=== PATIENT | female | born 1980 | race Caucasian/White ===

== ENCOUNTER 2017-06-04 17:14 | Emergency (ER) | payer MEDICAID ==
[~2017-06-04] VITALS: Ht 172.7 cm; Wt 63.7 kg
[2017-06-04 17:53] LABS: HEMATOCRIT 52.7 % (34.6-47.8); HEMOGLOBIN 17.3 g/dL (11.7-16.4); WHITE BLOOD COUNT 8.7 x10^3/uL (3.4-10)
[2017-06-04] MEDS ORDERED: ONDANSETRON 2MG/ML, 2ML ONE (17:54)
[2017-06-04] MEDS ORDERED: MAALOX/HYOSCYAMINE/LIDOCAINE 45 ML BTL ONE (17:54)
[2017-06-04] MEDS ORDERED: FAMOTIDINE 20 MG/2 ML ONE (17:54)
[2017-06-04] MEDS ORDERED: MAALOX/HYOSCYAMINE/LIDOCAINE 45 ML BTL PO ONE (18:00)
[2017-06-04] MEDS ORDERED: SODIUM CHLORIDE 0.9% 1,000ML IVBOLUS ONE (18:00)
[2017-06-04] MEDS ORDERED: ONDANSETRON 2MG/ML, 2ML IVPush ONE (18:00)
[2017-06-04] MEDS ORDERED: SODIUM CHLORIDE FLUSH 10ML SYR IVF ONE (18:00)
[2017-06-04] MEDS ORDERED: FAMOTIDINE 20 MG/2 ML IVP ONE (18:00)
[2017-06-04 18:06] LABS: ASPARTATE AMINO TRANSFERASE 14 U/L (15-37); BLOOD UREA NITROGEN 10 mg/dL (7-18)
[2017-06-04] MEDS ORDERED: SODIUM CHLORIDE 0.9%, 500ML IVBOLUS ONE (19:00)
[2017-06-04] MEDS ORDERED: ALBUTEROL SULFATE 2.5 MG/3 ML NPPB ONE (19:00)
[2017-06-04] MEDS ORDERED: DEXAMETHASONE 4 MG/ML, 5ML ONE (19:00)
[2017-06-04] MEDS ORDERED: DEXAMETHASONE 4 MG/ML, 1ML IVPush ONE (19:00)
[2017-06-04] MEDS ORDERED: ALBUTEROL SULFATE 2.5 MG/3 ML ONE (19:01)
[2017-06-04 19:58] VITALS: BP 102/69
== END 2017-06-04 20:05 | disposition home or self-care (01) ==
LOC: ED 19:02
DX: E86.0 Dehydration (principal); R10.13 Epigastric pain; J20.9 Acute bronchitis, unspecified; K29.00 Acute gastritis without bleeding; F17.200 Nicotine dependence, unspecified, uncomplicated
CPT/HCPCS: 36415; 71010; 76700; 80053; 81001; 83690; 85025; 94640; 96361; 96374; 99285; J1100; J2405; J7030; J7040; J7613; S0028